=== PATIENT | male | born 1960 | race Caucasian/White ===

== ENCOUNTER 2022-07-13 18:10 | Emergency (ER) | payer MEDICAID ==
[~2022-07-13] VITALS: Ht 177.8 cm; Wt 72.7 kg
[2022-07-13 18:17] VITALS: BP 135/82
== END 2022-07-13 22:21 | disposition left against medical advice (07) ==
LOC: ER 18:10
DX: S01.111A Laceration without foreign body of right eyelid and periocular area, initial encounter (principal); Z53.21 Procedure and treatment not carried out due to patient leaving prior to being seen by health care provider; W01.0XXA Fall on same level from slipping, tripping and stumbling without subsequent striking against object, initial encounter; Y93.89 Activity, other specified; Y92.89 Other specified places as the place of occurrence of the external cause; Y99.8 Other external cause status
CPT/HCPCS: 99281